=== PATIENT | male | born 1990 | race Caucasian/White ===

== ENCOUNTER 2017-11-30 16:13 | Emergency (ER) | payer SELFPAY ==
[~2017-11-30] VITALS: Ht 172.7 cm; Wt 73.0 kg
[2017-11-30 16:15] VITALS: BP 137/89
== END 2017-11-30 19:51 | disposition left against medical advice (07) ==
LOC: ER 16:26
DX: R42 Dizziness and giddiness (principal); Z53.21 Procedure and treatment not carried out due to patient leaving prior to being seen by health care provider